=== PATIENT | male | born 1965 | race Two or more races ===

== ENCOUNTER 2022-01-19 08:32 | Outpatient (REF) | payer OTHER, SELFPAY ==
[2022-01-19 09:35] LABS: COVID-19 Test Positive (Negative)
== END 2022-01-19 08:33 | disposition home or self-care (01) ==
LOC: HO.LAB 08:32
PROVIDERS: Visit Provider Internal Medicine
DX: Z20.822 Contact with and (suspected) exposure to COVID-19 (principal)
CPT/HCPCS: 87635; C9803